=== PATIENT | female | born 2000 | race Caucasian/White ===

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

== ENCOUNTER 2023-10-08 02:58 | Inpatient (IN) | payer BC ==
[2023-10-08] MEDS ORDERED: Methylergonovine 0.2 MG/1 ML Amp IM PRN (16:48)
[2023-10-08] MEDS ORDERED: Misoprostol 400 MCG (4 X 100 MCG TAB) RECTAL PRN (16:48)
[2023-10-08] MEDS ORDERED: Carboprost Tromethamine 250 MCG/1 ML Amp IM PRN (16:48)
[2023-10-08] MEDS ORDERED: Oxytocin/Normal Saline 30 UNIT/500 ML BAG IV SCH (17:00)
[2023-10-09] MEDS: Misoprostol 25 MCG (1/4 of 100 MCG) Tab PO SCH (00:42)
[2023-10-09 00:49] LABS: HEMATOCRIT 36.1 % (37.0-47.0); MEAN CORPUSCULAR HEMOGLOBIN 27.1 pg (27.0-34.0); MEAN CORPUSCULAR HGB CONC 33.2 g/dL (33.0-35.0); MEAN CORPUSCULAR VOLUME 81.7 fL (80-100); RED BLOOD CELL COUNT 4.42 10^6/uL (4.2-5.4); WHITE BLOOD CELL COUNT,WBC 8.8 10^3/uL (5.0-10.0)
[2023-10-09] MEDS: hydrOXYzine HCl 25 MG Tab PO ONE (02:05)
[2023-10-09] MEDS: Ondansetron 4 MG/2 ML SDV IVPUSH PRN (07:23)
[2023-10-09] MEDS: Sodium Chloride 0.9% 10 ML Syringe FLUSH PRN (07:23)
[2023-10-09] MEDS: fentaNYL 100 MCG/2 ML SDV IVPUSH PRN (07:52)
[2023-10-09] MEDS: Misoprostol 25 MCG (1/4 of 100 MCG) Tab VAG PRN (08:56)
[2023-10-09] MEDS: Lactated Ringers 1,000 ML IV ONE ×2 (09:28→13:12)
[2023-10-09] MEDS ORDERED: Bupivacaine 0.25% 10 ML SDV ONE (13:27)
[2023-10-09] MEDS ORDERED: fentaNYL 100 MCG/2 ML SDV ONE (13:27)
[2023-10-09] MEDS ORDERED: Phenylephrine HCl In 0.9% NaCl 1 MG/10 ML Syringe IVPUSH PRN (13:52)
[2023-10-09] MEDS ORDERED: ePHEDrine 50 MG/ML SDV IVPUSH PRN (13:52)
[2023-10-09] MEDS ORDERED: Ropivacaine 200 MG in Premix Bag 1 BAG EPIDUR SCH (14:00)
[2023-10-09] MEDS ORDERED: Oxytocin/Normal Saline 30 UNIT/500 ML BAG IV SCH (14:30)
[2023-10-09] MEDS: Lactated Ringers 1,000 ML IV SCH (19:23)
[2023-10-09] MEDS: Oxytocin/Normal Saline 30 UNIT/500 ML BAG IV SCH (19:24)
[2023-10-09] MEDS ORDERED: Metoclopramide 10 MG/2 ML SDV IVPUSH PRN (20:43)
[2023-10-09] MEDS ORDERED: Promethazine 25 MG/ML SDV IM PRN (20:43)
[2023-10-09] MEDS: Tranexamic Acid 1,000 MG in Sodium Chloride 0.9% 100 ML IV PRN (22:29)
[2023-10-09] MEDS ORDERED: Acetaminophen 325 MG Tab PO PRN (22:48)
[2023-10-09] MEDS ORDERED: Sodium Chloride 0.9% 10 ML Syringe FLUSH PRN (22:48)
[2023-10-09] MEDS ORDERED: Oxytocin 10 Units/1 ML SDV IM PRN (22:48)
[2023-10-09] MEDS ORDERED: Simethicone 80 MG Tab.Chew PO PRN (22:48)
[2023-10-09] MEDS ORDERED: Misoprostol 400 MCG (4 X 100 MCG TAB) RECTAL PRN (22:48)
[2023-10-09] MEDS ORDERED: Tranexamic Acid 1,000 MG in Sodium Chloride 0.9% 100 ML IV PRN (22:48)
[2023-10-09] MEDS ORDERED: Carboprost Tromethamine 250 MCG/1 ML Amp IM PRN (22:48)
[2023-10-09] MEDS: Acetaminophen 325 MG Tab PO PRN (22:53)
[2023-10-09] MEDS: Benzocaine/Menthol 20%-0.5% Spray 78 GM Cannister TOP PRN (23:51)
[2023-10-09] MEDS: Witch Hazel Medicated Pads 100/Jar TOP PRN (23:52)
[2023-10-10] MEDS: Ibuprofen 800 MG Tab PO SCH (03:53)
[2023-10-10] MEDS: Docusate Sodium 100 MG Cap PO PRN (07:33)
[2023-10-10] MEDS: Prenatal Multivitamin with Calcium/Folic Acid/Iron Tab PO SCH (07:33)
[2023-10-10] MEDS: Lidocaine 1% 30 ML SDV INJECT ONE (18:36)
[2023-10-11 08:23] VITALS: BP 128/76; PULSE 89
== END 2023-10-11 14:45 | disposition home or self-care (01) | DRG 560 ==
LOC: DL.OB 10-09 00:01 → OBSVTOIN 10-09 22:19
PROVIDERS: ADMIT Student in an Organized Health Care Education/Training Program; ATTEND Student in an Organized Health Care Education/Training Program
PROC: 10D07Z6 Extraction of Products of Conception, Vacuum, Via Natural or Artificial Opening (ICD-10-PCS; principal; 2023-10-09)
PROC: 10907ZC Drainage of Amniotic Fluid, Therapeutic from Products of Conception, Via Natural or Artificial Opening (ICD-10-PCS; 2023-10-09)
PROC: 3E0P7VZ Introduction of Hormone into Female Reproductive, Via Natural or Artificial Opening (ICD-10-PCS; 2023-10-09)
PROC: 0HQ9XZZ Repair Perineum Skin, External Approach (ICD-10-PCS; 2023-10-09)
PROC: 3E0R3BZ Introduction of Anesthetic Agent into Spinal Canal, Percutaneous Approach (ICD-10-PCS; 2023-10-09)
PROC: 00HU33Z Insertion of Infusion Device into Spinal Canal, Percutaneous Approach (ICD-10-PCS; 2023-10-09)
PROC: 3E0334Z Introduction of Serum, Toxoid and Vaccine into Peripheral Vein, Percutaneous Approach (ICD-10-PCS; 2023-10-09)
DX: O48.0 Post-term pregnancy (principal); Z37.0 Single live birth; O34.13 Maternal care for benign tumor of corpus uteri, third trimester; D25.9 Leiomyoma of uterus, unspecified; O26.893 Other specified pregnancy related conditions, third trimester; O77.0 Labor and delivery complicated by meconium in amniotic fluid; O70.0 First degree perineal laceration during delivery; O69.81X0 Labor and delivery complicated by cord around neck, without compression, not applicable or unspecified; O76 Abnormality in fetal heart rate and rhythm complicating labor and delivery; Z3A.40 40 weeks gestation of pregnancy; Z67.31 Type AB blood, Rh negative; Z98.890 Other specified postprocedural states
CPT/HCPCS: 36415; 51702; 59409; 85027; 85461; 86850; 86900; 86901; A9270-GY; J2405; J2590; J2790; J3010; J3490; J7120

== ENCOUNTER 2024-06-05 15:45 | Emergency (ER) | payer BC ==
[2024-06-05 16:05] VITALS: BP 117/75; PULSE 90
[2024-06-05] MEDS ORDERED: Sodium Chloride 0.9% 10 ML Syringe FLUSH PRN (16:10)
[2024-06-05 16:27] LABS: BASOPHILS PERCENT AUTO 0.2 % (0.0-1.0); EOSINOPHILS PERCENT AUTO 0.4 % (1.0-3.0); HEMATOCRIT 35.5 % (37.0-47.0); LYMPHOCYTES PERCENT AUTO 24.1 % (20.5-50.1); MEAN CORPUSCULAR HGB CONC 33.8 g/dL (33.0-35.0); MEAN CORPUSCULAR VOLUME 85.7 fL (80-100); NEUTROPHILS PERCENT AUTO 69.3 % (42.2-75.2); PLATELET COUNT,PLT 257 10^3/uL (150-450); RED BLOOD CELL COUNT 4.14 10^6/uL (4.2-5.4); WHITE BLOOD CELL COUNT,WBC 9.7 10^3/uL (5.0-10.0)
[2024-06-05 16:47] LABS: A/G RATIO 0.72; ALBUMIN 3.1 g/dL (3.4-5.0); ANION GAP 13.8 mEq/L (7-13); BILIRUBIN TOTAL 0.4 mg/dL (0.2-1.0); BUN/CREATININE RATIO 8.3 (No establ ref range); C-REACTIVE PROTEIN 1.65 ng/dL (<=0.50); CALCIUM 9.3 mg/dL (8.5-10.1); CREATININE 0.72 mg/dL (0.55-1.02); EST CRCL DRUG DOSING (CG) 104.04 mL/min; MAGNESIUM 1.7 mg/dL (1.8-2.4); POTASSIUM,K 3.8 mmol/L (3.5-5.1); PROTEIN TOTAL,TP 7.4 g/dL (6.4-8.2)
[2024-06-05 16:53] LABS: LACTIC ACID 0.5 mmol/L (0.4-2.0)
[2024-06-05 17:08] LABS: APPEARANCE,URINE CLEAR (CLEAR); BILIRUBIN,URINE NEGATIVE (NEGATIVE); COLOR,URINE LIGHT YELLOW (YELLOW); GLUCOSE,URINE NEGATIVE (NEGATIVE); KETONES,URINE 15 (NEGATIVE); LEUKOCYTE ESTERASE,URINE NEGATIVE (NEGATIVE); NITRITE,URINE NEGATIVE (NEGATIVE); OCCULT BLOOD,URINE NEGATIVE (NEGATIVE); PH,URINE 6.5 (5.0-9.0); PROTEIN,URINE NEGATIVE (NEGATIVE); UROBILINOGEN,URINE 0.2 mg/dL (0.2-1.0)
== END 2024-06-05 17:52 | disposition home or self-care (01) ==
LOC: DL.ED 15:45
DX: O26.892 Other specified pregnancy related conditions, second trimester (principal); R10.12 Left upper quadrant pain; Z79.899 Other long term (current) drug therapy; Z3A.19 19 weeks gestation of pregnancy
CPT/HCPCS: 36415; 80053; 81003; 82947; 83605; 83690; 83735; 85025; 86140; 87428-QW; 99283; 99284

== ENCOUNTER 2024-10-15 21:53 | Inpatient (IN) | payer BC ==
[2024-10-15] MEDS ORDERED: Sodium Chloride 0.9% 10 ML Syringe FLUSH PRN ×2 (22:28→23:27)
[2024-10-15] MEDS ORDERED: Carboprost Tromethamine 250 MCG/1 ML Amp IM PRN (23:27)
[2024-10-15] MEDS: Lactated Ringers 1,000 ML IV ONE (23:30)
[2024-10-15] MEDS ORDERED: Oxytocin/Lactated Ringers 30 UNIT/500 ML BAG IV SCH (23:30)
[2024-10-15 23:39] LABS: PLATELET COUNT,PLT 207.0 10^3/uL (150-450); RED BLOOD CELL COUNT 4.22 10^6/uL (4.2-5.4); WHITE BLOOD CELL COUNT,WBC 9.1 10^3/uL (5.0-10.0)
[2024-10-16] MEDS: Lactated Ringers 1,000 ML IV SCH (00:30)
[2024-10-16] MEDS: Ondansetron 4 MG/2 ML SDV IVPUSH PRN (00:33)
[2024-10-16] MEDS ORDERED: ePHEDrine 50 MG/ML SDV ONE (01:00)
[2024-10-16] MEDS: Oxytocin/Normal Saline 30 UNIT/500 ML BAG IV SCH (03:15)
[2024-10-16] MEDS ORDERED: Oxytocin 10 Units/1 ML SDV IM PRN (05:07)
[2024-10-16] MEDS: Benzocaine/Menthol 20%-0.5% Spray 78 GM Cannister TOP PRN (06:50)
[2024-10-16] MEDS: Witch Hazel Medicated Pads 100/Jar TOP PRN (06:51)
[2024-10-16] MEDS: Prenatal Multivitamin with Calcium/Folic Acid/Iron Tab PO SCH (08:58)
[2024-10-17 06:30] LABS: PLATELET COUNT,PLT 185.0 10^3/uL (150-450); RED BLOOD CELL COUNT 3.85 10^6/uL (4.2-5.4); WHITE BLOOD CELL COUNT,WBC 9.1 10^3/uL (5.0-10.0)
[2024-10-17 08:06] VITALS: BP 113/72; PULSE 70
[2024-10-17] MEDS: Measles, Mumps & Rubella Vaccine 0.5 ML SDV SUBCUT ONE (08:18)
== END 2024-10-17 12:00 | disposition home or self-care (01) | DRG 560 ==
LOC: DL.OBCHECK 21:53 → DL.OB 23:27 → OBSVTOIN 10-16 04:54
PROVIDERS: ADMIT Family Medicine; ATTEND Family Medicine
PROC: 10E0XZZ Delivery of Products of Conception, External Approach (ICD-10-PCS; principal; 2024-10-16)
PROC: 10907ZC Drainage of Amniotic Fluid, Therapeutic from Products of Conception, Via Natural or Artificial Opening (ICD-10-PCS; 2024-10-16)
PROC: 4A1HXCZ Monitoring of Products of Conception, Cardiac Rate, External Approach (ICD-10-PCS; 2024-10-16)
PROC: 3E0R3BZ Introduction of Anesthetic Agent into Spinal Canal, Percutaneous Approach (ICD-10-PCS; 2024-10-16)
PROC: 00HU33Z Insertion of Infusion Device into Spinal Canal, Percutaneous Approach (ICD-10-PCS; 2024-10-16)
DX: O26.893 Other specified pregnancy related conditions, third trimester (principal); Z3A.37 37 weeks gestation of pregnancy; Z37.0 Single live birth; Z67.31 Type AB blood, Rh negative; O34.13 Maternal care for benign tumor of corpus uteri, third trimester; D25.9 Leiomyoma of uterus, unspecified
CPT/HCPCS: 01967; 36415; 51702; 59409; 85027; 85461; 86850; 86870; 86900; 86901; 90471; 90707; A9270-GY; J2405; J2590; J2791; J7120